=== PATIENT | female | born 1985 | race African-American/Black ===

== ENCOUNTER 2016-09-08 17:18 | Emergency (ER) | payer OTHER ==
--- NOTE | 2016-09-08 19:32 | EDDOCDS ---
Nurse's Notes [facility] Name: Lennie Dolan Age: 30 yrs Sex: Female : 1985 Arrival Date: 09/08/2016 Time: 17:18 Bed Triage 1 Private MD: Ely Stauffer [facility] Diagnosis: related conditions, unspecified, second trimester;Radiculopathy, cervical region Presentation: 09/08 17:25 Presenting complaint: Patient states: pt presents with c/o headaches x one week sees dls black spots sometimes when she is lying down gets numbness in left hand. Pt is 19 weeks denies vaginal bleeding or discharge denies abdominal cramping. This patient has no additional risk factors. This patient experienced a syncopal episode after the onset of the headache. Adult Sepsis Screening: The patient does not have new or worsening altered mentation. Patient's respiratory rate is less than 22. Systolic blood pressure is greater than 100. Patient has a qSOFA score of 0- Negative Sepsis Screen. Suicide/Homicide risk assessment- the patient denies having any suicidal and/or homicidal ideations and does not present with any other emotional, behavioral or mental health complaints. Status: The patient is a dependent. Transition of care: patient was not received from another setting of care. 17:25 Acuity: KRYSTAL Level 3 dls 17:25 Method Of Arrival: Walkin/Carried/Asstd dls Triage Assessment: 17:28 Headache History: This patient has a history of headaches and the character of this dls headache is like all previous headaches. General: Appears in no apparent distress, well developed, well nourished, well groomed, Behavior is cooperative. Pain: Pain currently is 5 out of 10 on a pain scale. HIV screening NA for this visit Offered previously. 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 Vitamin Oral tab 1 tab once daily - PMHx: Anemia; - PSHx: D & C; - Social history: Smoking status: Patient/guardian denies using No barriers to communication noted, The patient speaks fluent Zambian. - Family history: Not pertinent. - : The pt / caregiver states he / she is not on anticoagulants. Home medication list is obtained from the patient. - Exposure Risk Screening:: None identified. Screenin:28 Screening information is obtained from the patient. Fall risk: No risks identified. ko2 Assistance ADL's: requires no assistance with activities of daily living. Abuse/DV Screen: The patient / caregiver reports he/she is: not in a situation that causes fear, pain or injury. Nutritional screening: No deficits noted. Advance Directives: Currently, there is no health care proxy. There is no active DNR order. There is no living will. There is no Power of Gold Reclaimer. home support is adequate. Assessment: 19:28 General: Appears in no apparent distress, comfortable, Behavior is appropriate for age, ko2 cooperative. Pain: Denies pain. Neurological: Level of Consciousness is awake, alert, Oriented to person, place, time. Respiratory: Airway is patent Respiratory effort is even, unlabored. Derm: Skin is normal. Vital Signs: 17:21 BP 117 / 56; Pulse 74; Resp 18 S; Temp 98.8(O); Pulse Ox 99% on R/A; Weight 67.13 kg gr2 (R); Height 5 ft. 5 in. (165.10 cm) (R); Pain 5/10; 19:28 BP 122 / 55; Pulse 70; Resp 16; Temp 97.5(TE); Pulse Ox 100% ; Pain 0/10; ko2 17:21 Body Mass Index 24.63 (67.13 kg, 165.10 cm) gr2 Vitals: 17:21 Log In Time: September 08, 2016 at 17:21. gr2 ED Course: 17:20 Patient visited by Waqar Ly. gr2 17:20 NO PRIMARY PHYSICIAN, . is Private Physician. gr2 17:20 Patient moved to Waiting gr2 17:21 Ely Stauffer [facility] is Private Physician. gr2 17:22 Patient visited by Waqar Ly. gr2 17:22 Patient moved to Pre RCE gr2 17:27 Triage Initiated dls 18:37 Patient moved to Triage 1 kcs 18:46 Patient visited by Daniella Dumas RN. mk4 19:07 Ronald Gaspar PA is PHCP. btw 19:07 Javier Briseno DO is Attending Physician. btw 19:07 Patient visited by Ronald Gaspar PA. btw 19:20 Ely Stauffer [facility] is Referral Physician. btw 19:29 The patient / caregiver is instructed regarding the plan of care and ED course. ko2 19:29 No IV's were initiated during this patient's visit. No procedures done that require ko2 assistance. Order Results: There are currently no results for this order. Outcome: 19:21 Discharge ordered by Provider. btw 19:29 Discharge Assessment: Patient awake, alert and oriented x 3. No cognitive and/or ko2 functional deficits noted. Patient verbalized understanding of disposition instructions. patient administered narcotics - no. The following High Risk Discharge criteria are identified: None. Discharged to home ambulatory. Condition: stable. Discharge instructions given to patient, Instructed on discharge instructions, follow up and referral plans. Demonstrated understanding of instructions, Pt was receptive of discharge instructions/ teaching. No special radiology studies were completed. Property sent home with patient. 19:30 Patient left the ED. ko2 Signatures: Nehal Bardales, RN RN Nicole Myers, RN RN Ronald Gilman PA PA btw Waqar Ly gr2 Daniella Dumas RN RN mk4 Magdalene GonzalezRN RN ko2 MTDD
--- NOTE | 2016-09-08 19:32 | EDDOCDS ---
Physician Documentation [facility] Name: Lennie Dolan Age: 30 yrs Sex: Female : 1985 Arrival Date: 09/08/2016 Time: 17:18 Bed Triage 1 Private MD: Ely Stauffer [facility] Disposition: 09/08/16 19:21 Discharged to Home/Self Care. Impression: related conditions, unspecified, second trimester, Radiculopathy, cervical region. - Condition is Stable. - Discharge Instructions: Cervical Radiculopathy, Lonv-gz-Clna, Second Trimester of , Hikz-ah-Goof. - Medication Reconciliation, Local Pharmacy Hours form. - Follow up: Ely Stauffer [facility]; When: Call to arrange an appointment; Reason: Further diagnostic work-up, Recheck today's complaints, Continuance of care. - Problem is new. - Symptoms are unchanged. Historical: - Allergies: Amoxicillin; - Home Meds: 1. Vitamin Oral tab 1 tab once daily - PMHx: Anemia; - PSHx: D & C; - Social history: Smoking status: Patient/guardian denies using No barriers to communication noted, The patient speaks fluent Japanese. - Family history: Not pertinent. - : The pt / caregiver states he / she is not on anticoagulants. Home medication list is obtained from the patient. - Exposure Risk Screening:: None identified. 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 5 in. (165.10 cm) (R); Pain 5/10; 19:28 BP 122 / 55; Pulse 70; Resp 16; Temp 97.5(TE); Pulse Ox 100% ; Pain 0/10; ko2 17:21 Body Mass Index 24.63 (67.13 kg, 165.10 cm) gr2 Signatures: Nicole Shah RN RN Ronald Gilman PA PA btw Magdalene Gonzalez,RN RN ko2 MTDD
--- NOTE | 2016-09-10 20:31 | EDDOCDS ---
Physician Documentation [facility] Name: Lennie Dolan Age: 30 yrs Sex: Female : 1985 Arrival Date: 09/08/2016 Time: 17:18 Bed Triage 1 Private MD: Ely Stauffer [facility] Disposition: 09/08/16 19:21 Discharged to Home/Self Care. Impression: related conditions, unspecified, second trimester, Radiculopathy, cervical region. - Condition is Stable. - Discharge Instructions: Cervical Radiculopathy, Fjcv-ah-Rudz, Second Trimester of , Inac-du-Ytfr. - Medication Reconciliation, Local Pharmacy Hours form. - Follow up: Ely Stauffer [facility]; When: Call to arrange an appointment; Reason: Further diagnostic work-up, Recheck today's complaints, Continuance of care. - Problem is new. - Symptoms are unchanged. Historical: - Allergies: Amoxicillin; - Home Meds: 1. Vitamin Oral tab 1 tab once daily - PMHx: Anemia; - PSHx: D & C; - Social history: Smoking status: Patient/guardian denies using No barriers to communication noted, The patient speaks fluent Yakut. - Family history: Not pertinent. - : The pt / caregiver states he / she is not on anticoagulants. Home medication list is obtained from the patient. - Exposure Risk Screening:: None identified. 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 5 in. (165.10 cm) (R); Pain 5/10; 19:28 BP 122 / 55; Pulse 70; Resp 16; Temp 97.5(TE); Pulse Ox 100% ; Pain 0/10; ko2 17:21 Body Mass Index 24.63 (67.13 kg, 165.10 cm) gr2 MDM: 09/09 10:41 T-Sheet-- Draft Copy was scanned into [employer] and attached to record. gb Signatures: Nicole Shah RN RN dls Sharron Tuttle, Reg Reg gb Ronald Gaspar PA PA btw Magdalene Gonzalez RN RN ko2 The chart was reviewed and I authenticate all verbal orders and agree with the evaluation and treatment provided.Attachments: 10:41 T-Sheet-- Draft Copy gb Chart Complete MTDD
--- NOTE | 2016-09-10 20:31 | EDDOCDS ---
Physician Documentation [facility] Name: Lennie Dolan Age: 30 yrs Sex: Female : 1985 Arrival Date: 09/08/2016 Time: 17:18 Bed Triage 1 Private MD: Ely Stauffer [facility] Disposition: 09/08/16 19:21 Discharged to Home/Self Care. Impression: related conditions, unspecified, second trimester, Radiculopathy, cervical region. - Condition is Stable. - Discharge Instructions: Cervical Radiculopathy, Lvsx-vu-Syzo, Second Trimester of , Zysb-qi-Cbju. - Medication Reconciliation, Local Pharmacy Hours form. - Follow up: Ely Stauffer [facility]; When: Call to arrange an appointment; Reason: Further diagnostic work-up, Recheck today's complaints, Continuance of care. - Problem is new. - Symptoms are unchanged. Historical: - Allergies: Amoxicillin; - Home Meds: 1. Vitamin Oral tab 1 tab once daily - PMHx: Anemia; - PSHx: D & C; - Social history: Smoking status: Patient/guardian denies using No barriers to communication noted, The patient speaks fluent Lao. - Family history: Not pertinent. - : The pt / caregiver states he / she is not on anticoagulants. Home medication list is obtained from the patient. - Exposure Risk Screening:: None identified. 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 5 in. (165.10 cm) (R); Pain 5/10; 19:28 BP 122 / 55; Pulse 70; Resp 16; Temp 97.5(TE); Pulse Ox 100% ; Pain 0/10; ko2 17:21 Body Mass Index 24.63 (67.13 kg, 165.10 cm) gr2 MDM: 09/09 10:41 T-Sheet-- Draft Copy was scanned into [employer] and attached to record. gb Signatures: Nicole Shah RN RN dls Sharron Tuttle, Reg Reg gb Ronald Gaspar PA PA btw Magdalene Gonzalez RN RN ko2 The chart was reviewed and I authenticate all verbal orders and agree with the evaluation and treatment provided.Attachments: 10:41 T-Sheet-- Draft Copy gb Chart Complete MTDD
--- NOTE | 2016-09-10 20:31 | EDDOCDS ---
Nurse's Notes [facility] Name: Lennie Dolan Age: 30 yrs Sex: Female : 1985 Arrival Date: 09/08/2016 Time: 17:18 Bed Triage 1 Private MD: Ely Stauffer [facility] Diagnosis: related conditions, unspecified, second trimester;Radiculopathy, cervical region Presentation: 09/08 17:25 Presenting complaint: Patient states: pt presents with c/o headaches x one week sees dls black spots sometimes when she is lying down gets numbness in left hand. Pt is 19 weeks denies vaginal bleeding or discharge denies abdominal cramping. This patient has no additional risk factors. This patient experienced a syncopal episode after the onset of the headache. Adult Sepsis Screening: The patient does not have new or worsening altered mentation. Patient's respiratory rate is less than 22. Systolic blood pressure is greater than 100. Patient has a qSOFA score of 0- Negative Sepsis Screen. Suicide/Homicide risk assessment- the patient denies having any suicidal and/or homicidal ideations and does not present with any other emotional, behavioral or mental health complaints. Status: The patient is a dependent. Transition of care: patient was not received from another setting of care. 17:25 Acuity: KRYSTAL Level 3 dls 17:25 Method Of Arrival: Walkin/Carried/Asstd dls Triage Assessment: 17:28 Headache History: This patient has a history of headaches and the character of this dls headache is like all previous headaches. General: Appears in no apparent distress, well developed, well nourished, well groomed, Behavior is cooperative. Pain: Pain currently is 5 out of 10 on a pain scale. HIV screening NA for this visit Offered previously. 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 Vitamin Oral tab 1 tab once daily - PMHx: Anemia; - PSHx: D & C; - Social history: Smoking status: Patient/guardian denies using No barriers to communication noted, The patient speaks fluent Slovak. - Family history: Not pertinent. - : The pt / caregiver states he / she is not on anticoagulants. Home medication list is obtained from the patient. - Exposure Risk Screening:: None identified. Screenin:28 Screening information is obtained from the patient. Fall risk: No risks identified. ko2 Assistance ADL's: requires no assistance with activities of daily living. Abuse/DV Screen: The patient / caregiver reports he/she is: not in a situation that causes fear, pain or injury. Nutritional screening: No deficits noted. Advance Directives: Currently, there is no health care proxy. There is no active DNR order. There is no living will. There is no Power of Health Clinician. home support is adequate. Assessment: 19:28 General: Appears in no apparent distress, comfortable, Behavior is appropriate for age, ko2 cooperative. Pain: Denies pain. Neurological: Level of Consciousness is awake, alert, Oriented to person, place, time. Respiratory: Airway is patent Respiratory effort is even, unlabored. Derm: Skin is normal. Vital Signs: 17:21 BP 117 / 56; Pulse 74; Resp 18 S; Temp 98.8(O); Pulse Ox 99% on R/A; Weight 67.13 kg gr2 (R); Height 5 ft. 5 in. (165.10 cm) (R); Pain 5/10; 19:28 BP 122 / 55; Pulse 70; Resp 16; Temp 97.5(TE); Pulse Ox 100% ; Pain 0/10; ko2 17:21 Body Mass Index 24.63 (67.13 kg, 165.10 cm) gr2 Vitals: 17:21 Log In Time: September 08, 2016 at 17:21. gr2 ED Course: 17:20 Patient visited by Waqar Ly. gr2 17:20 NO PRIMARY PHYSICIAN, . is Private Physician. gr2 17:20 Patient moved to Waiting gr2 17:21 Ely Stauffer [facility] is Private Physician. gr2 17:22 Patient visited by Waqar Ly. gr2 17:22 Patient moved to Pre RCE gr2 17:27 Triage Initiated dls 18:37 Patient moved to Triage 1 kcs 18:46 Patient visited by Daniella Dumas RN. mk4 19:07 Ronald Gaspar PA is PHCP. btw 19:07 Javier Briseno DO is Attending Physician. btw 19:07 Patient visited by Ronald Gaspar PA. btw 19:20 Ely Stauffer [facility] is Referral Physician. btw 19:29 The patient / caregiver is instructed regarding the plan of care and ED course. ko2 19:29 No IV's were initiated during this patient's visit. No procedures done that require ko2 assistance. 09/09 10:41 T-Sheet-- Draft Copy was scanned into [employer] and attached to record. gb Order Results: There are currently no results for this order. Outcome: 09/08 19:21 Discharge ordered by Provider. btw 19:29 Discharge Assessment: Patient awake, alert and oriented x 3. No cognitive and/or ko2 functional deficits noted. Patient verbalized understanding of disposition instructions. patient administered narcotics - no. The following High Risk Discharge criteria are identified: None. Discharged to home ambulatory. Condition: stable. Discharge instructions given to patient, Instructed on discharge instructions, follow up and referral plans. Demonstrated understanding of instructions, Pt was receptive of discharge instructions/ teaching. No special radiology studies were completed. Property sent home with patient. 19:30 Patient left the ED. ko2 Signatures: Nehal Bardales, RN RN Nicole Myers, RN MINDY dls Sharron Tuttle, Reg Reg gb Ronald Gaspar PA PA btw Waqar Ly gr2 Daniella Dumas RN RN mk4 Magdalene Gonzalez,RN RN ko2 Chart Complete MTDD
== END 2016-09-08 19:30 | disposition home or self-care (01) ==
LOC: M ED 17:18
DX: O99.89 Other specified diseases and conditions complicating pregnancy, childbirth and the puerperium (principal); M54.12 Radiculopathy, cervical region; O99.012 Anemia complicating pregnancy, second trimester; Z88.0 Allergy status to penicillin; Z3A.19 19 weeks gestation of pregnancy